=== PATIENT | male | born 1970 | race African-American/Black ===

== ENCOUNTER 2021-07-15 15:40 | Emergency (ER) | payer BC, SELFPAY ==
--- NOTE | ~2021-07-15 | US_ITS ---
EXAMINATION:US venous doppler LE RT INDICATION:Right leg swelling TECHNIQUE: Multiple grayscale, color flow and Doppler images of the right lower extremity deep venous systems were obtained and reviewed. COMPARISON:No prior studies for comparison. FINDINGS: The common femoral, superficial femoral and popliteal veins demonstrate normal respiratory variation, augmentation and compressibility. Color flow is also seen within the posterior tibial, pe roneal, greater saphenous and profunda veins. IMPRESSION: 1: No lower extremity deep venous thrombosis. Reviewed, dictated and finalized at location A.
--- NOTE | ~2021-07-15 | CT_ITS ---
EXAMINATION: CT LE RT w con DATE: 07/15/2021 21:33 INDICATION: Right eye swelling, redness and warmth. TECHNIQUE: Computed tomography (CT) of the right lower extremity was performed with 100 cc Omnipaque 350 intravenous contrast. The dose-length product was 574.02 mGy-cm. Automated exposure control and i terative reconstruction technique were employed. COMPARISON: None FINDINGS: There is edema in the subcutaneous tissues and underlying fascia the distal thigh extending below the knee, consistent with cellulitis. No walled off fluid collection to suggest abscess. No si gnificant intramuscular abnormality identified. No significant osseous abnormality. There is degenera tive change of the right hip. IMPRESSION: 1. Findings compatible with cellulitis of the subcutaneous tissues and underlying fascia of the thigh . No abscess identified. Reviewed, dictated and finalized at location A. IMPRESSION: 1. Findings compatible with cellulitis of the subcutaneous tissues and underlyi ng fascia of the thigh. No abscess identified.
[2021-07-15 17:42] VITALS: BP 129/77; PULSE 85; RESP 16; TEMP 36.6; O2SAT 100
[2021-07-15] MEDS: SODIUM CHLORIDE 0.9% IV 1,000 ML 999 ML IV CONT (20:31)
[2021-07-15 20:36] LABS: Basophils Absolute Auto 0.1 K/mm3 (0.0-0.1); Basophils Percent Auto 0.4 % (0.2-1.2); Eosinophils Absolute Auto 0.2 K/mm3 (0-0.3); Eosinophils Percent Auto 0.8 % (0-4.4); Hematocrit 45.8 % (42.0-52.0); Hemoglobin 14.8 g/dL (14.0-18.0); Immature Granulocyte Absolute 0.45 K/mm3 (0.00-0.031); Immature Granulocyte Percent A 1.8 % (0-0.5); Lymphocytes Absolute Auto 2.59 K/mm3 (0.9-3.2); Lymphocytes Percent Auto 10.2 % (18.3-44.2); Mean Corpuscular HGB Conc 32.3 g/dl (32-36); Mean Corpuscular Hemoglobin 27.9 pg (26-34); Mean Corpuscular Volume 86.3 fl (80-100); Monocytes Absolute Auto 1.6 K/mm3 (0.1-0.6); Monocytes Percent Auto 6.5 % (2.6-8.5); Neutrophils Absolute Auto 20.3 K/mm3 (1.3-6.7); Neutrophils Percent Auto 80.3 % (45.5-73.1); Platelet Count Result 443 k/mm3 (150-375); Red Blood Count 5.31 M/mm3 (4.6-6.20); Red Cell Distribution Width 15.2 % (11.5-14.5); White Blood Count 25.3 K/mm3 (4.5-10.0)
[2021-07-15 21:05] LABS: Erythrocyte Sedimentation Rate 8 mm/hr (0-20)
[2021-07-15 21:08] LABS: Alanine Aminotransferase 67 U/L (4-50); Albumin Level 3.7 g/dL (3.5-5.1); Alkaline Phosphatase 60 U/L (38-126); Anion Gap 11 mmol/L (8-16); Aspartate Amino Transferase 68 U/L (17-59); Bilirubin,Total 0.5 mg/dL (0.2-1.3); Blood Urea Nitrogen 20 mg/dL (9-20); CRP 8.2 mg/dL (<1.0); Carbon Dioxide 27 mmol/L (22-30); Chloride 100 mmol/L (98-107); Creatine Kinase 85 U/L (55-170); Estimated CRCL calculation 84 ml/min; Estimated Glomerular Filt Rate > 60; Glucose 90 mg/dL (65-110); Potassium 4.4 mmol/L (3.4-5.0); Sodium 138 mmol/L (137-145)
--- NOTE | 2021-07-15 23:10 | ED.LOWEXIN ---
HPI - Extremity Injury (Lower) General Chief Complaint: Extremity Injury, Lower Stated Complaint: Right leg pain, swelling and fluid Time Seen by Provider: 07/15/21 19:02 History of Present Illness HPI Narrative: Patient is a 51-year-old male who presents ER with possible infection to his right thigh. Reports 3 days ago he started having redness and pain in his leg. Its wax and wane in intensity but became much more intense today and much more pain. Denies fevers or chills or sweats. Pain is worse when he flexes at the knee. No known inoculation. No breakdown in the skin. No drainage. Related Data Allergies Allergy/AdvReac Type Severity Reaction Status Date / Time No Known Allergies Allergy Verified 07/15/21 19:48 Review of Systems Review of Systems: All systems reviewed & are unremarkable except as noted in HPI and below Constitutional: Constitutional: Denies chills, Denies fever(s) and Denies weakness ENT: Denies nasal congestion and Denies sore throat Cardiovascular: Cardiovascular: Denies chest pain, Denies rapid heart rate and Denies radiating jaw, neck or arm pain Respiratory: Respiratory: Denies cough and Denies dyspnea Musculoskeletal: Musculoskeletal: Denies arthralgias, Denies joint swelling and Reports muscle cramps Integumentary/Breasts: Comments: Redness of the skin. PMFSH Past Medical History Medical History (Updated 07/15/21 @ 23:15 by Ryan Mark MD) Healthy adult male Surgical History Surgical History (Updated 07/15/21 @ 23:15 by Ryan Mark MD) Hx of appendectomy Social History Social History (Updated 07/15/21 @ 23:15 by Ryan Mark MD) Smoking status: Never smoker Exam Narrative: GENERAL: Well-appearing, well-nourished, and in no acute distress. HEAD: Normocephalic, atraumatic. CHEST: Clear to auscultation. No respiratory distress. HEART: Regular rate and rhythm. Normal peripheral pulses. ABDOMEN: Soft, nontender, nondistended. EXTREMITIES: Right lower extremity with circumferential cellulitis of the thigh. Patient maintains range of motion at the knee and hip. Thigh is tender to palpation. Normal left lower extremity and bilateral upper extremities. SKIN: Warm, dry, no rash. Cellulitis as noted above. NEURO: Alert and oriented x3. PSYCH: Normal mood and affect. Course Course Emergency Course: Patient is declining hospitalization and understands that he is leaving AGAINST MEDICAL ADVICE. He realizes that he risks development of sepsis, , endorgan failure, and disability. I will still give him IV antibiotics here and a prescription for antibiotics at home. Vital Signs Vital signs: Vital Signs Temperature 97.9 F 07/15/21 17:42 Pulse Rate 85 07/15/21 17:42 Respiratory Rate 16 07/15/21 17:42 Blood Pressure 129/77 07/15/21 17:42 Pulse Oximetry 100 07/15/21 17:42 Temperature 97.9 F 07/15/21 17:42 Pulse Rate 85 07/15/21 17:42 Respiratory Rate 16 07/15/21 17:42 Blood Pressure 129/77 07/15/21 17:42 Pulse Oximetry 100 07/15/21 17:42 MDM - Extremity Injury (Lower) Lab Data Result diagrams: 07/15/21 20:28 07/15/21 20:28 Labs: Lab Results 07/15/21 07/15/21 Range/Units 20:28 20:28 WBC 25.3 H (4.5-10.0) K/mm3 RBC 5.31 (4.6-6.20) M/mm3 Hgb 14.8 (14.0-18.0) g/dL Hct 45.8 (42.0-52.0) % MCV 86.3 (80-100) fl MCH 27.9 (26-34) pg MCHC 32.3 (32-36) g/dl RDW 15.2 H (11.5-14.5) % Plt Count 443 H (150-375) k/mm3 MPV 9.0 (7.4-10.4) fl Immature Gran % (Auto) 1.8 H (0-0.5) % Neut % (Auto) 80.3 H (45.5-73.1) % Lymph % (Auto) 10.2 L (18.3-44.2) % [place] % (Auto) 6.5 (2.6-8.5) % Eos % (Auto) 0.8 (0-4.4) % Baso % (Auto) 0.4 (0.2-1.2) % Lymph # (Auto) 2.59 (0.9-3.2) K/mm3 [place] # (Auto) 1.6 H (0.1-0.6) K/mm3 Eos # (Auto) 0.2 (0-0.3) K/mm3 Baso # (Auto) 0.1 (0.0-0.1) K/mm3 Abs Immat Gran (auto) 0.45 H (0.00-0.0
== END 2021-07-15 23:36 | disposition left against medical advice (07) ==
PROVIDERS: Emergency Provider Emergency Medicine
DX: L03.115 Cellulitis of right lower limb (principal)
CPT/HCPCS: 36415; 73701; 80053; 82550; 85025; 85652; 86140; 93971; 96361; 96365; 99284; J0690; J7030; Q9967